=== PATIENT | male | born 1955 | race Caucasian/White ===

== ENCOUNTER 2022-04-12 09:58 | Emergency (ER) | payer MEDICAID ==
[~2022-04-12] VITALS: Ht 170.2 cm; Wt 70.5 kg
[2022-04-12 10:17] VITALS: BP 157/50
[2022-04-12] MEDS ORDERED: oxyCODONE/APAP 10/325mg tablet PO ONE (15:10)
== END 2022-04-12 15:20 | disposition home or self-care (01) ==
LOC: ER 09:59
DX: G89.29 Other chronic pain (principal); M45.2 Ankylosing spondylitis of cervical region; Z88.2 Allergy status to sulfonamides; Z79.899 Other long term (current) drug therapy
CPT/HCPCS: 99284